=== PATIENT | female | born 1975 | race Caucasian/White ===

== ENCOUNTER 2018-01-18 09:36 | Emergency (ER) | payer OTHER ==
[2018-01-18] MEDS ORDERED: NS 1,000 ML IV ONE (09:46)
--- NOTE | 2018-01-18 09:49 | EDPHY ---
H & P Time Seen by Provider: 01/18/18 09:45 HPI/ROS: CHIEF COMPLAINT: Syncope HISTORY OF PRESENT ILLNESS: 42-year-old female presents to the emergency department by ambulance after having a syncopal episode. The patient states that this morning when she woke up she has some lower abdominal cramping which she felt was a bit more severe than menstrual cramping which is now since resolved but then had a syncopal episode and fell. She does not think that she hit her head. She denies a headache. Denies neck or back pain. Denies chest pain or difficulty breathing. Denies abdominal pain. Denies injury to upper or lower extremities. Patient vomited 1 time. Her menstrual period started yesterday which was 3 days early. She has no calf pain or swelling. No chest pain or difficulty breathing. REVIEW OF SYSTEMS: Constitutional: No fever, no chills. Eyes: No double or blurry vision. ENT: No sore throat. Respiratory: No cough, no shortness of breath. Cardiac: No chest pain. Gastrointestinal: No abdominal pain, vomiting or diarrhea. Genitourinary: No dysuria. Musculoskeletal: No neck or back pain. Skin: No rashes. Neurological: No headache. Past Medical/Surgical History: Hypothyroidism Social History: , visiting from [place] Physical Exam: General Appearance: Alert, no distress. Mentating normally and answering questions appropriately. No visible signs of trauma to her head. Blood pressure 101/73, heart rate 70, 98% on room air. Eyes: Pupils equal and round. Extraocular motions are all intact. ENT: Mouth: Mucous membranes very dry. No dental injury or malocclusion. Respiratory: No wheezing, rhonchi, or rales, lungs are clear to auscultation. Cardiovascular: Regular rate and rhythm. Gastrointestinal: Abdomen is soft and nontender, no masses, no rebound or guarding, bowel sounds normal. Neurological: Alert and oriented x 3, cranial nerves II through XII grossly intact Skin: Warm and dry, no rashes. Musculoskeletal: Nontender to palpate along the cervical, thoracic or lumbar spine. Neck is supple. Extremities: Full range of motion and no peripheral edema. Psychiatric: Patient is oriented X 3, there is no agitation. Constitutional: Initial Vital Signs Temperature (C) 36.6 C 01/18/18 09:40 Heart Rate 67 01/18/18 09:40 Respiratory Rate 18 01/18/18 09:40 Blood Pressure 101/73 01/18/18 09:40 O2 Sat (%) 99 01/18/18 09:40 O2 Delivery Mode Room Air Allergies/Adverse Reactions: No Known Allergies Allergy (Unverified 01/18/18 09:47) Home Medications: Medication Instructions Recorded Synthroid 01/18/18 Medical Decision Making - Diagnostics EKG Interpretation: EKG reveals normal sinus rhythm. This was reviewed by Dr. Soto Corado. See interpretation in trace master. ED Course/Re-evaluation: 42-year-old female presents to the emergency department after having a syncopal episode. The patient feels extremely thirsty and still feeling a bit lightheaded but thinks that she is feeling better after some IV fluids by EMS. The patient is visiting from [place] and has recently been traveling to neighboring [facility] visiting [facility]. She has no calf pain or swelling. She has no pleuritic chest pain. She does not feel short of breath. No other chest pain. I doubt pulmonary embolism. Laboratory studies were all within normal limits. The patient received IV normal saline. She had already received Zofran ODT with relief. The patient was kept on a monitoring analyst. She was feeling much better. She was able to ambulate without any difficulty or dizziness or feeling any recurring symptoms of syncope. Patient feels comfortable being discharged home. The case was discussed with Dr. Corado, secondary supervising physician, who did not directly evaluate the patient but agrees with treatment and plan. Differential Diagnosis: Syncope including but not limited to vasovagal syncope, arrhythmia, dehydration , and blood loss. - Data Points Laboratory Results: Laboratory Results 01/18/18 09:40 01/18/18 09:40 01/18/18 01/18/18 01/18/18 09:40 09:40 09:40 WBC 8.74 10^3/uL 10^3/uL (3.80-9.50) RBC 5.01 10^6/uL 10^6/uL (4.18-5.33) Hgb 14.5 g/dL g/dL (12.6-16.3) Hct 41.7 % % (38.0-47.0) MCV 83.2 fL fL (81.5-99.8) MCH 28.9 pg pg (27.9-34.1) MCHC 34.8 g/dL g/dL (32.4-36.7) RDW 12.5 % % (11.5-15.2) Plt Count 278 10^3/uL 10^3/uL (150-400) MPV 10.8 fL fL (8.7-11.7) Neut % (Auto) 55.1 % % (39.3-74.2) Lymph % (Auto) 32.2 % % (15.0-45.0) [place] % (Auto) 9.3 % % (4.5-13.0) Eos % (Auto) 2.4 % % (0.6-7.6) Baso % (Auto) 0.7 % % (0.3-1.7) Nucleat RBC Rel Count 0.0 % % (0.0-0.2) Absolute Neuts (auto) 4.82 10^3/uL 10^3/uL (1.70-6.50) Absolute Lymphs (auto) 2.81 10^3/uL 10^3/uL (1.00-3.00) Absolute Monos (auto) 0.81 10^3/uL H 10^3/uL (0.30-0.80) Absolute Eos (auto) 0.21 10^3/uL 10^3/uL (0.03-0.40) Absolute Basos (auto) 0.06 10^3/uL 10^3/uL (0.02-0.10) Absolute Nucleated RBC 0.00 10^3/uL 10^3/uL (0-0.01) Immature Gran % 0.3 % % (0.0-1.1) Immature Gran # 0.03 10^3/uL 10^3/uL (0.00-0.10) Sodium 138 mEq/L mEq/L (135-145) Potassium 4.1 mEq/L mEq/L (3.3-5.0) Chloride 110 mEq/L mEq/L (97-110) Carbon Dioxide 22 mEq/l mEq/l (22-31) Anion Gap 6 mEq/L L mEq/L (8-16) BUN 20 mg/dL mg/dL (7-23) Creatinine 0.8 mg/dL mg/dL (0.6-1.0) Estimated GFR > 60 Glucose 146 mg/dL H mg/dL (70-100) Calcium 9.3 mg/dL mg/dL (8.5-10.4) Beta HCG, Qual NEGATIVE Medications Given: Discontinued Medications Sodium Chloride (Ns) 1,000 mls @ 0 mls/hr IV ONCE ONE PRN Reason: Wide Open Stop: 01/18/18 09:47 Last Admin: 01/18/18 10:13 Dose: 1,000 mls Departure - Departure Disposition: Home, Routine, Self-Care Clinical Impression: Syncope Qualifiers: Syncope type: vasovagal syncope Qualified Code(s): R55 - Syncope and collapse Condition: Good Instructions: Syncope (ED) Additional Instructions: Diet and activity as tolerated. Return to the emergency department if you developed pain in her chest, difficulty breathing, headache, vomiting, altered mental status, or if you feel worse in any way. Follow up with primary care provider next week to recheck. Referrals: Chris Anglin MD [Medical Doctor] - 2-3 days without fail (Primary care provider information systems manager)
[2018-01-18 09:59] LABS: PLATELET COUNT 278 10^3/uL (150-400)
--- NOTE | 2018-01-18 10:20 | CPEKG ---
Heart Rate: 74 RR Interval: 811 P-R Interval: 128 QRSD Interval: 92 QT Interval: 412 QTC Interval: 457 P [place]: 24 QRS [place]: 10 T Wave [place]: 60 EKG Severity - NORMAL ECG - EKG Impression: SINUS RHYTHM Electronically Signed By: Kenji Sweet 20-Jan-2018 09:11:10
[2018-01-18 10:49] VITALS: BP 109/77
== END 2018-01-18 11:04 | disposition home or self-care (01) ==
DX: R55 Syncope and collapse (principal)